=== PATIENT | female | born 1965 | race Caucasian/White ===

== ENCOUNTER 2017-10-26 16:32 | Emergency (ER) | payer BC, SELFPAY ==
--- OUTSIDE RECORDS SUMMARY | 2017-10-26 16:35 | XMS REPORT ---
:1965 Author Organization [facility] Address [address] [place] [address] Dr. Byrd [address] [place] [address] Care Team Providers Name Role Phone JAMES FAN Unavailable Unavailable Problems This patient has no known problems. Allergies, Adverse Reactions, Alerts This patient has no known allergies or adverse reactions. Medications This patient has no known medications. Results Test Description Test Time Test Comments Text Results Atomic Results Result Comments FLOW CYTOMETRY REQUISITION 2016-10-21 10:26:00 Test Item Value Reference Range Comments FLOW CYTOMETRY RESULT POINTER (BEAKER) (test erjh=7861) See Separate Report FLOW CYTOMETRY AP CASE # (BEAKER) (test dlea=8408) [id number] BLOOD [id number] 06:00:00 Test Item Value Reference Range Comments CULTURE (BEAKER) (test zddy=5401) No growth in 5 days BLOOD [id number] 06:00:00 Test Item Value Reference Range Comments CULTURE (BEAKER) (test ldgl=4791) No growth in 5 days FLOW [id number] 08:25:00Flow Cytometry Report Case: [id number] Authorizing Provider: Nena Shea MD Collected: 10/13/2016 0500 Ordering Location: [address] Received: 10/13/2016 0844 Service Pathologist: Shari Zuniga MD Specimen: Other RESULTS: ADULT NORMALS ABSOLUTE LYMPHS: 1355.03/cmm 911-4017/cmmT LYMPHOCYTE ENUMERATION: CD3 (Total T cell) 81.41% 1103.09/cmm 619--3000/cmmCD4 (T [place] cells) 57.79% 783.06/cmm 437-1930/cmmCD8 (T Suppressor cells) 23.58% 319.51/ cmm 161-1160/cmmCD4:CD8 (Th:Ts Ratio) 2.45 1.00-2.50CD16+56 (Natural Killer cells) 2.09% 28.28/cmm 84-722/ cmmB LYMPHOCYTE ENUMERATION:CD19 (Total B cells) 16.43% 222.61 /cmm 74-706/cmmThese reference ranges are specific for the T cell subset immune profile methodology, effective 06/23/2014. No cellular immune alteration detected. Absolute lymph count, absolute CD4 count and CD4:CD8 ratio within normal limits.[id number] Zoster meningitisPeripheral bloodCD3, CD4, CD8, CD16+56, YL05Gelub testswere developed and their performance characteristics determined by [facility]. They have not been cleared or approved by the U.S. Food and Drug Administration. The FDA has determined that such clearance or approval is not necessary. It should not be regarded as investigational or for research. This laboratory is certified under the Clinical Laboratory Improvement Amendments of 1988 ("CLIA") as qualified to perform high-complexity clinical testing.BASIC METABOLIC [id number] 04:15: 00 Test Item Value Reference Range Comments SODIUM (BEAKER) (test 137 meq/L 136-145 ksrz=102) POTASSIUM (BEAKER) (test 4.2 meq/L 3.5-5.1 frdj=565) CHLORIDE (BEAKER) (test 100 meq/L 98-107 ddox=471) CO2 (BEAKER) (test 29 meq/L 22-29 klim=453) BLOOD UREA NITROGEN 5 mg/dL 7-21 (BEAKER) (test dzro=209) CREATININE (BEAKER) (test 0.72 mg/dL 0.57-1.25 vzho=672) GLUCOSE RANDOM (BEAKER) 93 mg/dL 70-105 (test qtvq=381) CALCIUM (BEAKER) (test 9.8 mg/dL 8.4-10.2 pfun=655) EGFR (BEAKER) (test mL/min/1.73 sq m INSUFFICIENT CLINICAL DATA vocx=9865) TO CALCULATE ESTIMATED GFR. [id number] 03:57:00 Test Item Value Reference Range Comments PHOSPHORUS (BEAKER) (test xero=887) 4.8 mg/dL 2.3-4.7 [id number] 03:57:00 Test Item Value Reference Range Comments MAGNESIUM (BEAKER) (test xsqf=535) 2.0 mg/dL 1.6-2.6 PROTHROMBIN TIME/[id number] 03:55:00 Test Item Value Reference Range Comments PROTIME (BEAKER) (test aeso=995) 14.4 seconds 11.7-14.7 INR (BEAKER) (test xvnv=208) 1.1 <=5.9 RECOMMENDED COUMADIN/WARFARIN INR THERAPY RANGESSTANDARD DOSE: 2.0 - 3.0 Includes: PROPHYLAXIS forvenous thrombosis, systemic embolization; TREATMENT for venous thrombosis and/or pulmonary embolus.HIGH RISK: Target INR is 2.5-3.5 for patients with mechanical heart valves.IMMUNOGLOBULIN G (IGG)2016-10-13 07:43 :00 Test Item Value Reference Range Comments IMMUNOGLOBULIN G (IGG) (BEAKER) (test ttoc=252) 1099 mg/dL 540-1822 IMMUNOGLOBULIN M (IGM)2016-10-13 07:43:00 Test Item Value Reference Range Comments IMMUNOGLOBULIN M (IGM) (BEAKER) (test bkwd=169) 145 mg/dL 22-293 IMMUNOGLOBULIN A (IGA)2016-10-13 07:43:00 Test Item Value Reference Range Comments IMMUNOGLOBULIN A (IGA) (BEAKER) (test cnok=276) 516 mg/dL 63-484 BASIC METABOLIC [id number] 05:59:00 Test Item Value Reference Range Comments SODIUM (BEAKER) (test 136 meq/L 136-145 inzy=846) POTASSIUM (BEAKER) (test 4.2 meq/L 3.5-5.1 lqxa=209) CHLORIDE (BEAKER) (test 101 meq/L 98-107 qqob=527) CO2 (BEAKER) (test 25 meq/L 22-29 ikhx=648) BLOOD UREA NITROGEN 5 mg/dL 7-21 (BEAKER) (test vnai=032) CREATININE (BEAKER) (test 0.80 mg/dL 0.57-1.25 pvjv=721) GLUCOSE RANDOM (BEAKER) 95 mg/dL 70-105 (test vrbp=094) CALCIUM (BEAKER) (test 9.7 mg/dL 8.4-10.2 ioxk=947) EGFR (BEAKER) (test mL/min/1.73 sq m INSUFFICIENT CLINICAL DATA obkt=9135) TO CALCULATE ESTIMATED GFR. [id number] 05:48:00 Test Item Value Reference Range Comments PHOSPHORUS (BEAKER) (test ihpm=843) 4.2 mg/dL 2.3-4.7 [id number] 05:48:00 Test Item Value Reference Range Comments MAGNESIUM (BEAKER) (test wqhr=537) 2.1 mg/dL 1.6-2.6 PROTHROMBIN TIME/[id number] 05:26:00 Test Item Value Reference Range Comments PROTIME (BEAKER) (test bnep=876) 13.3 seconds 11.7-14.7 INR (BEAKER) (test tzun=047) 1.0 <=5.9 RECOMMENDED COUMADIN/WARFARIN INR THERAPY RANGESSTANDARD DOSE: 2.0 - 3.0 Includes: PROPHYLAXIS forvenous thrombosis, systemic embolization; TREATMENT for venous thrombosis and/or pulmonary embolus.HIGH RISK: Target INR is 2.5-3.5 for patients with mechanical heart valves.PROTHROMBIN TIME/[id number] 03:27: 00 Test Item Value Reference Range Comments PROTIME (BEAKER) (test hqvp=835) 13.7 seconds 11.7-14.7 INR (BEAKER) (test kyov=647) 1.1 <=5.9 RECOMMENDED COUMADIN/WARFARIN INR THERAPY RANGESSTANDARD DOSE: 2.0 - 3.0 Includes: PROPHYLAXIS forvenous thrombosis, systemic embolization; TREATMENT for venous thrombosis and/or pulmonary embolus.HIGH RISK: Target INR is 2.5-3.5 for patients with mechanical heart valves.BASIC METABOLIC [id number] 03:17: 00 Test Item Value Reference Range Comments SODIUM (BEAKER) (test 138 meq/L 136-145 psnk=509) POTASSIUM (BEAKER) (test 3.4 meq/L 3.5-5.1 vmmv=174) CHLORIDE (BEAKER) (test 101 meq/L 98-107 arfg=300) CO2 (BEAKER) (test 25 meq/L 22-29 roab=375) BLOOD UREA NITROGEN 4 mg/dL 7-21 (BEAKER) (test saeb=042) CREATININE (BEAKER) (test 0.79 mg/dL 0.57-1.25 qyhk=248) GLUCOSE RANDOM (BEAKER) 173 mg/dL 70-105 (test knmf=073) CALCIUM (BEAKER) (test 9.8 mg/dL 8.4-10.2 jcqz=203) EGFR (BEAKER) (test mL/min/1.73 sq m INSUFFICIENT CLINICAL DATA rjsm=9652) TO CALCULATE ESTIMATED GFR. [id number] 03:15:00 Test Item Value Reference Range Comments PHOSPHORUS (BEAKER) (test rcwu=938) 3.6 mg/dL 2.3-4.7 [id number] 03:15:00 Test Item Value Reference Range Comments MAGNESIUM (BEAKER) (test uvvp=316) 2.1 mg/dL 1.6-2.6 CBC W/PLT COUNT & AUTO [id number] 03:00:00 Test Item Value Reference Range Comments WHITE BLOOD CELL COUNT (BEAKER) (test zqwq=843) 4.3 K/ L 3.5-10.5 RED BLOOD CELL COUNT (BEAKER) (test jipo=153) 3.96 M/ L 3.93-5.22 HEMOGLOBIN (BEAKER) (test gqfq=969) 11.2 GM/DL 11.2-15.7 HEMATOCRIT (BEAKER) (test adbi=276) 34.7 % 34.1-44.9 MEAN CORPUSCULAR VOLUME (BEAKER) (test tbxj=640) 87.6 fL 79.4-94.8 MEAN CORPUSCULAR HEMOGLOBIN (BEAKER) (test 28.3 pg 25.6-32.2 kcsv=229) MEAN CORPUSCULAR HEMOGLOBIN CONC (BEAKER) (test 32.3 GM/DL 32.2-35.5 nczt=702) RED CELL DISTRIBUTION WIDTH (BEAKER) (test 14.1 % 11.7-14.4 zyvx=658) PLATELET COUNT (BEAKER) (test qlhc=075) 208 K/CU MM 150-450 MEAN PLATELET VOLUME (BEAKER) (test dkvn=385) 9.9 fL 9.4-12.3 NUCLEATED RED BLOOD CELLS (BEAKER) (test 0 /100 WBC 0-0 wvxm=188) NEUTROPHILS RELATIVE PERCENT (BEAKER) (test 67 % vgqy=760) LYMPHOCYTES RELATIVE PERCENT (BEAKER) (test 22 % xmqk=554) MONOCYTES RELATIVE PERCENT (BEAKER) (test 6 % ydeb=580) EOSINOPHILS RELATIVE PERCENT (BEAKER) (test 4 % xxjx=825) BASOPHILS RELATIVE PERCENT (BEAKER) (test 1 % zcnq=579) NEUTROPHILS ABSOLUTE COUNT (BEAKER) (test 2.86 K/ L 1.56-6.13 cxdm=167) LYMPHOCYTES ABSOLUTE COUNT (BEAKER) (test 0.96 K/ L 1.18-3.74 wabg=588) MONOCYTES ABSOLUTE COUNT (BEAKER) (test 0.26 K/ L 0.24-0.36 dgjj=720) EOSINOPHILS ABSOLUTE COUNT (BEAKER) (test 0.17 K/ L 0.04-0.36 lqnv=864) BASOPHILS ABSOLUTE COUNT (BEAKER) (test 0.02 K/ L 0.01-0.08 ekqz=639) IMMATURE GRANULOCYTES-RELATIVE PERCENT (BEAKER) 1 % 0-1 (test wqqq=4032)
--- OUTSIDE RECORDS SUMMARY | 2017-10-26 16:35 | XMS REPORT | Clinical Summary ---
:1965 Author Organization [facility] Address [address] [place] [address] Phone Care Team Providers Name Role Phone Unavailable Primary Care Provider Unavailable Allergies Active Allergy Reactions Severity Noted Date Comments Penicillins Dermatitis Medium 10/11/2016 Hydrocodone-Acetaminophen Itching 10/12/2016 Current Medications Prescription Sig. Disp. Refills Start Date End Date Status gabapentin Take 5 capsules 450 capsule 11 10/15/2016 10/15/2017 (NEURONTIN) 100 MG (500 mg total) capsule by mouth 3 (three) times daily. lidocaine-prilocain Apply topically 30 g 0 10/15/2016 10/15/2017 e (EMLA) 2.5-2.5 % as needed. cream metoprolol Take 0.5 tablets 30 tablet 11 10/15/2016 10/15/2017 (LOPRESSOR) 25 MG (12.5 mg total) tablet by mouth 2 (two) times daily. valACYclovir Take 1 tablet 33 tablet 0 10/15/2016 10/26/2016 (VALTREX) 1000 MG (1,000 mg total) tablet by mouth every 8 (eight) hours for 11 days. traMADol-acetaminop Take 1 tablet by 30 tablet 0 10/15/2016 10/25/2016 hen (ULTRACET) mouth every 6 37.5-325 mg per (six) hours as tablet needed for Pain for up to 10 days. Max Daily Amount: 4 tablets oxyCODONE Take 1 tablet (5 30 tablet 0 10/15/2016 10/25/2016 (ROXICODONE) 5 MG mg total) by immediate release mouth every 4 tablet (four) hours as needed for up to 10 days. 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
[2017-10-26] MEDS ORDERED: cloNIDine HCl 0.1 MG TAB ONE (17:03)
--- NOTE | 2017-10-26 17:04 | RAD REPORT ---
EXAM DESCRIPTION: Santos Single View10/26/2017 4:58 pm CLINICAL HISTORY: CHEST PAIN COMPARISON: none FINDINGS: The lungs appear clear of acute infiltrate. The heart is normal size IMPRESSION: No acute abnormalities displayed
[2017-10-26 17:08] LABS: Absolute Lymphocytes (CBC) 1.1 K/uL (0.7-4.9); Absolute Monocytes 0.4 K/uL (0.1-1.3); Absolute Neutrophil 4.3 K/uL (1.8-8.0); Basophils % 0.5 % (0-1.3); Eosinophils % 1.5 % (0-4.4); Hematocrit 37.4 % (36.0-45.0); Lymphocytes % 18.6 % (15.3-44.8); MCV 95.6 fL (80-100); MPV 7.5 fL (7.6-11.3); Monocytes % 7.1 % (3.3-12.3); RBC Red Blood Cell Count 3.92 M/uL (3.86-4.86)
--- NOTE | 2017-10-26 17:19 | RAD REPORT ---
EXAM DESCRIPTION: CT - Head Brain Wo Cont - 10/26/2017 5:08 pm CLINICAL HISTORY: hypertensive;Headache<Reason For Exam>hypertensive;Headache Alteration of consciousness/memory loss COMPARISON: No comparisons<Comparisons> June 2016 TECHNIQUE: Computed axial tomography of the head was obtained. IV contrast was not requested. All CT scans are performed using dose optimization technique as appropriate and may include automated exposure control or mA/KV adjustment according to patient size. FINDINGS: An intracranial bleed is not seen . The ventricles are normal in caliber. No extra-axial fluid collection is noted. Fluid within the sinuses/ mastoids is not seen. IMPRESSION: No acute intracranial abnormality is seen. If patient's symptoms persist MRI of the bra in would be recommended.
[2017-10-26 17:27] LABS: BUN Blood Urea Nitrogen 5 mg/dL (7-18); Bicarbonate 26 mmol/L (21-32); CKMB Creatine Kinase MB < 1.0 ng/mL (0.3-3.6); Creatine Phosphokinase 45 U/L (26-192); Glucose Level 95 mg/dL (74-106); Potassium 3.4 mmol/L (3.5-5.1); Sodium Level 135 mmol/L (136-145)
--- NOTE | 2017-10-26 17:40 | ER ---
Nurse's Notes [facility] Name: Tiana Madsen Age: 51 yrs Sex: Female : 1965 Arrival Date: 10/26/2017 Time: 16:33 Bed 17 Private MD: Diagnosis: Hypertension;Headache;Chest pain, unspecified Presentation: 10/26 16:34 Presenting complaint: Patient states: high blood pressure, headache and chest tightness ss that began this morning. Transition of care: patient was not received from another setting of care. Onset of symptoms was October 26, 2017. Risk Assessment: Do you want to hurt yourself or someone else? Patient reports no desire to harm self or others. Initial Sepsis Screen: Does the patient meet any 2 criteria? No. Patient's initial sepsis screen is negative. Does the patient have a suspected source of infection? No. Patient's initial sepsis screen is negative. Care prior to arrival: Medication(s) given: ASA, 81 mg, x 4, Nitroglycerin, 0.4 mg SL x 1, zofran 4 mg, IV initiated. 20 GA, in the right antecubital area, Med neb given. 16:34 Method Of Arrival: EMS: [facility] ss 16:34 Acuity: PRAMOD 3 ss Triage Assessment: 16:45 Headache History: Denies prior headaches. General: Appears uncomfortable, Behavior is rb1 calm, cooperative. Pain: Pain currently is 10 out of 10 on a pain scale. Also complains of no other associated symptoms. Historical: - Allergies: 16:40 Codeine; ss - Home Meds: 16:45 Unable to obtain [Active]; rb1 - PMHx: 16:45 Hypertension; rb1 - PSHx: 16:45 None; rb1 - Immunization history:: Adult Immunizations up to date. - Family history:: not pertinent. - Social history:: Smoking status: Patient/guardian denies using tobacco. - Ebola Screening: : Patient negative for fever greater than or equal to 101.5 degrees Fahrenheit, and additional compatible Ebola Virus Disease symptoms. - Hospitalizations: : No recent hospitalization is reported. Screenin:01 Abuse screen: Denies threats or abuse. Denies injuries from another. Nutritional ss screening: No deficits noted. Tuberculosis screening: Never had TB. Fall Risk None identified. Assessment: 16:45 General: Appears uncomfortable, Behavior is calm, cooperative, Denies fever. Pain: rb1 Complains of pain in midsternal and head. Neuro: Level of Consciousness is awake, alert, obeys commands, Oriented to person, place, time, situation. Cardiovascular: Capillary refill < 3 seconds is brisk in bilateral fingers. Respiratory: Airway is patent Respiratory effort is even, unlabored, Respiratory pattern is regular, symmetrical. GI: No signs and/or symptoms were reported involving the gastrointestinal system. : No signs and/or symptoms were reported regarding the genitourinary system. Derm: Skin is pink, warm \T\ dry. Musculoskeletal: Range of motion: intact in all extremities. 17:01 Reassessment: Pt to CT via Wheelchair with Teddy, radiology director. ss 17:45 Reassessment: Patient appears in no apparent distress at this time. Patient and/or rb1 family updated on plan of care and expected duration. Pain level reassessed. Patient is alert, oriented x 3, equal unlabored respirations, skin warm/dry/pink. 18:40 Reassessment: Patient appears in no apparent distress at this time. No changes from rb1 previously documented assessment. Vital Signs: 16:40 BP 172 / 103; Pulse 96; Resp 16; Pulse Ox 97% on R/A; ss 16:41 Temp 98.7(O); Weight 57.61 kg; Height 5 ft. 1 in. (154.94 cm); Pain 6/10; ss 17:00 BP 137 / 96; Pulse 92; Resp 16; Pulse Ox 100% on R/A; ss 18:00 BP 151 / 98; Pulse 82; Resp 17; Pulse Ox 99% ; rb1 16:41 Body Mass Index 24.00 (57.61 kg, 154.94 cm) ss [place] Coma Score: 17:37 Eye Response: spontaneous(4). Verbal Response: oriented(5). Motor Response: obeys rn commands(6). Total: 15. ED Course: 16:33 Patient arrived in ED. ss 16:38 Eloy Cruz MD is Attending Physician. rn 16:39 Triage completed. ss 16:40 Arm band placed on right wrist. ss 16:41 EKG done, by echo tech. reviewed by Eloy Cruz MD. sm3 16:50 Patient has correct armband on for positive identification. Bed in low position. Call ss light in reach. Side rails up X 1. 16:50 Maintain EMS IV. Dressing intact. Good blood return noted. Site clean \T\ dry. Gauge \T\ rb 1 site: 20g L wrist. 16:56 Linda Cantu, RN is Primary Nurse. 16:59 XRAY Chest (1 view) In Process Unspecified. EDMS 17:[address] via wheelchair. nj 17:04 CT completed. Patient tolerated procedure well. Patient moved back from CT. nj 17:08 CT Head Brain wo Cont In Process Unspecified. EDMS 17:40 Tao Jose MD is Referral Physician. rn 18:44 No provider procedures requiring assistance completed. IV discontinued, intact, rb1 bleeding controlled, No redness/swelling at site. Pressure dressing applied. Administered Medications: 18:23 Not Given (BP 137/96): cloNIDine 0.2 mg PO once rb1 Outcome: 17:40 Discharge ordered by MD. rn 18:44 Patient left the ED. rb1 18:44 Discharged to home ambulatory, with family. rb1 18:44 Condition: stable 18:44 Discharge instructions given to patient, Instructed on discharge instructions, follow up and referral plans. Demonstrated understanding of instructions, follow-up care, Prescriptions given X none Signatures: Dispatcher [employer] EDNV Eloy Cruz MD MD rn Smirch, Shelby, RN RN Teena Baptiste, RN RN rb1 Jonny Wells Shakira 3 Corrections: (The following items were deleted from the chart) 19:57 16:50 Inserted saline lock: 20 gauge in left wrist, using aseptic technique. ,using rb1 aseptic technique. Inserted by KASI Mckeon Blood collected. rb1 20:03 19:14 Patient left the ED. rb1 rb1
--- NOTE | 2017-10-26 17:40 | EDPHYS ---
Physician Documentation [facility] Name: Tiana Madsen Age: 51 yrs Sex: Female : 1965 Arrival Date: 10/26/2017 Time: 16:33 Bed 17 Private MD: ED Physician Eloy Cruz HPI: 10/26 16:44 This 51 yrs old Female presents to ER via EMS with complaints of Headache, rn Chest Tightness, High Blood Pressure. 16:44 The patient describes the headache as throbbing. Onset: The symptoms/episode rn began/occurred at 12:00. Severity of symptoms: At its worst the pain was moderate, in the emergency department the pain has improved. Headache History: The patient has had previous headaches and this one is similar to previous episodes. The patient has experienced similar episodes in the past. Reports around noon began having headache, checked BP , was high, reports BP always high but not this high, about 45 later began having chest pressure, substernal, no radiation, no sob, no cough, no abd pain. + similar headaches in past with blood pressure problems, but not this bad. No trauma, no syncope, no neck pain or stiff neck. . Historical: - Allergies: 16:40 Codeine; ss - Home Meds: 16:45 Unable to obtain [Active]; rb1 - PMHx: 16:45 Hypertension; rb1 - PSHx: 16:45 None; rb1 - Immunization history:: Adult Immunizations up to date. - Family history:: not pertinent. - Social history:: Smoking status: Patient/guardian denies using tobacco. - Ebola Screening: : Patient negative for fever greater than or equal to 101.5 degrees Fahrenheit, and additional compatible Ebola Virus Disease symptoms. - Hospitalizations: : No recent hospitalization is reported. ROS: 16:44 Constitutional: Negative for fever, chills, and weight loss, Eyes: Negative for injury, rn pain, redness, and discharge, Neck: Negative for injury, pain, and swelling, Cardiovascular: Negative for palpitations, and edema, Respiratory: Negative for shortness of breath, cough, wheezing, and pleuritic chest pain, Abdomen/GI: Negative for abdominal pain, vomiting, diarrhea, and constipation, MS/Extremity: Negative for injury and deformity, Skin: Negative for injury, rash, and discoloration, Neuro: Negative for weakness, and seizure. Exam: 16:44 Constitutional: This is a well developed, well nourished patient who is awake, alert, rn and in no acute distress. Head/Face: Normocephalic, atraumatic. Eyes: Pupils equal round and reactive to light, extra-ocular motions intact. Lids and lashes normal. Conjunctiva and sclera are non-icteric and not injected. Cornea within normal limits. Periorbital areas with no swelling, redness, or edema. Neck: Trachea midline, no thyromegaly or masses palpated, and no cervical lymphadenopathy. Supple, full range of motion without nuchal rigidity, or vertebral point tenderness. No Meningismus. Cardiovascular: Regular rate and rhythm with a normal S1 and S2. No gallops, murmurs, or rubs. Normal PMI, no JVD. No pulse deficits. Respiratory: Lungs have equal breath sounds bilaterally, clear to auscultation and percussion. No rales, rhonchi or wheezes noted. No increased work of breathing, no retractions or nasal flaring. Abdomen/GI: Soft, non-tender, with normal bowel sounds. No distension or tympany. No guarding or rebound. No evidence of tenderness throughout. MS/ Extremity: Pulses equal, no cyanosis. Neurovascular intact. Full, normal range of motion. Equal circumference. Neuro: Awake and alert, GCS 15, oriented to person, place, time, and situation. Cranial nerves II-XII grossly intact. Motor strength 5/5 in all extremities. Sensory grossly intact. Cerebellar exam normal. Vital Signs: 16:40 BP 172 / 103; Pulse 96; Resp 16; Pulse Ox 97% on R/A; ss 16:41 Temp 98.7(O); Weight 57.61 kg; Height 5 ft. 1 in. (154.94 cm); Pain 6/10; ss 17:00 BP 137 / 96; Pulse 92; Resp 16; Pulse Ox 100% on R/A; ss 18:00 BP 151 / 98; Pulse 82; Resp 17; Pulse Ox 99% ; rb1 16:41 Body Mass Index 24.00 (57.61 kg, 154.94 cm) ss Clifford Coma Score: 17:37 Eye Response: spontaneous(4). Verbal Response: oriented(5). Motor Response: obeys rn commands(6). Total: 15. MDM: 16:38 Patient medically screened. rn 17:37 Differential diagnosis: hypertensive headache, migraine, tension headache, vasomotor rn headache, hypertensive emergency, malignant hypertension. Data reviewed: vital signs, nurses notes, lab test result(s), EKG, radiologic studies, CT scan, plain films, and as a result, I will discharge patient. Counseling: I had a detailed discussion with the patient and/or guardian regarding: the historical points, exam findings, and any diagnostic results supporting the discharge/admit diagnosis, the presence of at least one elevated blood pressure reading (>120/80) during this emergency department visit, lab results, radiology results, the need for outpatient follow up, to return to the emergency department if symptoms worsen or persist or if there are any questions or concerns that arise at home. Response to treatment: the patient's symptoms have markedly improved after treatment. Special discussion: I discussed with the patient/guardian in detail that at this point there is no indication for admission to the hospital. It is understood, however, that if the symptoms persist or worsen the patient needs to return immediately for re-evaluation. Based on the history and exam findings, there is no indication for further emergent testing or inpatient evaluation. I discussed with the patient/guardian the need to see the bridge attacher for further evaluation of the symptoms. I discussed with the patient/guardian the need to see the primary care provider for further evaluation of the symptoms. ED course: Pt improved without therapy, clonidine had been ordered but BP improved to 137/96 on its own, still having mild chest tightness, trop normal, ecg without ischemia. Will dc home with pcp and cardiology f/u, return precautions given and understood. . 17:41 ED course: Pt with constant chest pain for > 4 hours, trop normal, ecg without rn ischemia, headache and CP improved on their own when blood pressure lowered. Reports hx of intermittent, weekly headaches, and denies recent episodes of chest pain/cough/sob. Understands cardiac disease not completely ruled out without stress/cath, agrees to f/u with cardiology or return if symptoms worsen before evaluation.. 10/26 16:39 Order name: Basic Metabolic Panel; Complete Time: 17:28 rn 10/26 16:39 Order name: CBC with Diff; Complete Time: 17:22 rn 10/26 16:39 Order name: Ckmb; Complete Time: 17:28 rn 10/26 16:39 Order name: CPK; Complete Time: 17: rn 10/26 16:39 Order name: Protime (+inr); Complete Time: 17: rn 10/26 16:39 Order name: Ptt, Activated; Complete Time: 17: rn 10/26 16:39 Order name: CT Head Brain wo Cont; Complete Time: 17: rn 10/26 16:39 Order name: Troponin (emerg Dept Use Only); Complete Time: 17: rn 10/26 16:39 Order name: EKG; Complete Time: 16: rn 10/26 16:39 Order name: Cardiac monitoring; Complete Time: 17: rn 10/26 16:39 Order name: EKG - Nurse/Tech; Complete Time: 17: rn 10/26 16:39 Order name: IV Saline Lock; Complete Time: 17: rn 10/26 16:39 Order name: XRAY Chest (1 view); Complete Time: 17: rn 10/26 16:39 Order name: Labs collected and sent; Complete Time: 19: rn 10/26 16:39 Order name: NPO; Complete Time: 19: rn 10/26 16:39 Order name: O2 Per Protocol; Complete Time: 19: rn 10/26 16:39 Order name: O2 Sat Monitoring; Complete Time: 19:02 rn Administered Medications: 18:23 Not Given (BP 137/96): cloNIDine 0.2 mg PO once rb1 Disposition: 10/26/17 17:40 Discharged to Home. Impression: Hypertension, Headache, Chest pain, unspecified. - Condition is Stable. - Discharge Instructions: Nonspecific Chest Pain, General Headache Without Cause, Hypertension. - Medication Reconciliation Form, Thank You Letter, Antibiotic Education, Prescription Opioid Use form. - Follow up: Tao Jose MD; When: 2 - 3 days; Reason: Recheck today's complaints, Re-evaluation by your physician. - Problem is new. - Symptoms have improved. Signatures: Dispatcher [employer] EDMS Eloy Cruz MD MD rn Linda Cantu RN RN Teena Goins, RN RN rb1 Corrections: (The following items were deleted from the chart) 19:14 17:40 10/26/2017 17:40 Discharged to Home. Impression: Hypertension; Headache; Chest rb1 pain, unspecified. Condition is Stable. Forms are Medication Reconciliation Form, Thank You Letter, Antibiotic Education, Prescription Opioid Use. Follow up: Tao Jose; When: 2 - 3 days; Reason: Recheck today's complaints, Re-evaluation by your physician. Problem is new. Symptoms have improved. rn
--- NOTE | 2017-10-28 06:12 | EKG ---
Test Date: 2017-10-26 Test Time: 16:30:51 Unarmed Security Guard: LATRELL MEASUREMENT RESULTS: Intervals: Rate: 87 TN: 110 QRSD: 80 QT: 356 QTc: 428 [place]: P: 39 TN: 110 QRS: 32 T: 51 INTERPRETIVE STATEMENTS: Sinus rhythm with short TN Otherwise normal ECG No previous ECG available for comparison Electronically Signed On 10-28-17 06:08:19 CDT by Tao Jose
== END 2017-10-26 19:14 | disposition home or self-care (01) ==
LOC: ER 16:32
DX: I10 Essential (primary) hypertension (principal); R07.9 Chest pain, unspecified; Z88.5 Allergy status to narcotic agent
CPT/HCPCS: 36415; 70450; 71045; 80048; 82550; 82553; 84484; 85025; 85610; 85730; 93005; 99284

== ENCOUNTER 2021-03-17 08:52 | Emergency (ER) | payer SELFPAY ==
--- OUTSIDE RECORDS SUMMARY | 2021-03-17 08:55 | XMS REPORT | Continuity of Care Document ---
:1965 Author Organization [facility] t Address [address] [place] [address] Care Team Providers Name Role Phone Singer OZUNAOusmane Attending Clinician JAMES FAN Attending Clinician Unavailable JAMES FAN Admitting Clinician Unavailable Problems Condition Condition Condition Status Onset Resolution Last Treating Co mments Source Name Details Category Date Date Treatment Clinician Date Decreased Decreased Disease Active Uni vers libido libido 06 ity of 00:00: [place] 00 [facility] Dyspareuni Dyspareuni Disease Active U nivers a, female a, female 7 ity of 00:00: [place] 00 [facility] Vaginal Vaginal Disease Active Univers atrophy atrophy 706 ity of 00:00: [place] 00 [facility] Allergies, Adverse Reactions, Alerts Allergy Allergy Status Severity Reaction(s) Onset Inactive Treating Comm ents Source Name Type Date Date Clinician Codeine Drug Active Itching Univers Allergy 6-14 ity of 00:00: [place] 00 [facility] CODEINE DRUG Active High ITCHING Univers INGREDI 6-14 ity of 00:00: [place] 00 [facility] Hydrocod Propensi Active Itching Unive rs one-Acet ty to 8-16 ity of aminophe adverse 00:00: [place] n reaction 00 Medical s Branch HYDROCOD DRUG Active ITCHING 2017-0 Univers ONE-ACET 8-16 ity of AMINOPHE 00:00: [place] N 00 Medical Branch PENICILL Drug Active Med Rash 0 Univers INS Class 8-15 ity of 00:00: [place] 00 Medical [facility] Penicill Propensi Active Rash 2016-0 Univer s ins ty to 8-15 ity of adverse 00:00: [place] reaction 00 Medical s Branch Social History Social Habit Start Date Stop Date Quantity Comments Source Sex Assigned At Universit y of [facility] Exposure to Not sure University of SARS-CoV-2 [facility] (event) Branch Alcohol intake 2019-01-12 2019-01-12 University of 00:00:00 00:00:00 [facility] Alcohol Comment 2017-08-10 2017-08-10 1 case beer week Uni versity of 00:00:00 00:00:00 [facility] Smoking Status Start Date Stop Date Source Never smoker [facility] Medications Ordered Filled Start Stop Current Ordering Indication Dosage Frequency Signature Comments Components Source Medication Medication Date Date Medication? Clinician (SIG) Name Name methylPREDN Yes [id number] Take by Univers ISolone 4-30 mouth ity of (MEDROL, 00:00: SEE-INSTRU John as ANTIONE,) 4 mg 00 CTIONS. Medica l tablets follow Branch package directions clindamycin 2020- No [id number] 300mg Take 2 Univers 150 mg 4-30 05-08 capsules ity of capsule 00:00: 04:59 by mouth 4 John as 00 :00 (four) Medical times Branch daily for 7 days. amitriptyli 2018-02 Yes [id number] 10mg Take 1 Univers ne 10 mg 1-16 tablet by ity of tablet 00:00: mouth at [place] 00 bedtime. Medical Branch metoprolol Yes 25mg Take 1 Unive rs succinate 5-02 tablet by ity o f XL 25 mg 24 00:00: mouth [place] hr tablet 00 daily. Medical Branch CARBAMAZEPI Yes TAKE 1 Univ ers NE 100 mg 5-02 TABLET BY ity o f 12 hr 00:00: MOUTH [place] tablet 00 TWICE A Medical DAY Branch fluticasone Yes [id number] 1{spray Use 1 Univers 50 4-10 } [place] in ity of mcg/actuati 00:00: each [place] on nasal 00 nostril 2 Medica l spray (two) Branch times daily. benzonatate 2018- Yes [id number] 100mg Take 1 Univers (TESSALON 4-10 capsule by ity of PERLES) 100 00:00: mouth 3 John as mg capsule 00 (three) Medica l times Branch daily. naproxen 2018- Yes [id number] 500mg Take 1 Un jose 500 mg 4-10 tablet by ity of tablet 00:00: mouth 2 [place] 00 (two) Medical times Branch daily with meals. promethazin Yes [id number] 5mL Take 5 mL Univers e-dextromet 3-25 by mouth 4 it y of horphan 00:00: (four) [place] 6.25-15 00 times Medical mg/5 mL daily as Branch syrup needed for Cough. albuterol Yes [id number] 2{puff} Inhale 2 Univers 90 3-25 Puffs ity of mcg/actuati 00:00: every 6 John as on inhaler 00 (six) Medical hours as Branch needed for Chest tightness. olmesartan Yes [id number] 20mg Take 1 U nivers (BENICAR) 2-05 tablet by ity o f 20 mg 00:00: mouth [place] tablet 00 daily. Medical Branch Vital Signs Vital Name Observation Time Observation Value Comments Source Systolic blood 2019-06-27 12:00:00 176 mm[Hg] Univer sity of pressure [facility] Diastolic blood 2019-06-27 12:00:00 86 mm[Hg] Unive rsity [facility] Heart rate 2019-06-27 12:00:00 95 /min [facility] Body temperature 2019-06-27 12:00:00 37.06 Krystyna [facility] Respiratory rate 2019-06-27 12:00:00 18 /min [facility] Body height 2019-06-27 12:00:00 154.9 cm [facility] Body weight 2019-06-27 12:00:00 47.628 kg [facility] BMI 2019-06-27 12:00:00 19.84 kg/m2 [facility] Oxygen saturation in 2019-06-27 12:00:00 100 /min [facility] Arterial blood by [facility] Pulse oximetry Branch Procedures This patient has no known procedures. Encounters Start End Encounter Admission Attending Care Care Encounter Source Date/Time Date/Time Type Type Clinicians Facility Department ID 2020-12-[address] [facility] [id number] Univers 19:27:27 ity of [facility] 2019-06-27 2019-06-27 Emergency Singer [facility] [id number] Univers 07:02:56 08:01:00 Ousmane Cardenas [id number] i ty leah Garcia [id number] [facility] [id number] [facility] 084 Branch Results Test Description Test Time Test Comments Results Result Comments Source FLOW CYTOMETRY REQUISITION 2016-10-21 10:26:00 Test Item Value Reference Range Interpretation Comme nts FLOW CYTOMETRY RESULT POINTER (BEMICHELLE) (test code = 2758) See Separ ate Report FLOW CYTOMETRY AP CASE # (BEMICHELLE) (test code = 2759) [id number] BLOOD [id number] 06:00:00 Test Item Value Reference Range Interpretation Comments CULTURE (BEAKER) (test No growth in 5 days code = 1095) BLOOD [id number] 06:00:00 Test Item Value Reference Range Interpretation Comments CULTURE (BEAKER) (test No growth in 5 days code = 1095) FLOW [id number] 08:25:00Flow Cytometry Report Case: [id number] Authorizing Provider: Nena Shea MD Collected: 10/13/2016 0500 Ordering Location: [address] Received: 10/13/2016 0844 Service Pathologist: Shari Zuniga MD Specimen: Other RESULTS: ADULT NORMALS ABSOLUTE LYMPHS: 1355.03/cmm 911- 4017/cmmT LYMPHOCYTE ENUMERATION: CD3 (Total T cell) 81.41% 1103.09/cmm 619--3000/cmmCD4 (T [place] cells) 57.79% 783.06/cmm 437-1930/cmmCD8 (T Suppressor cells) 23.58% 319.51/cmm 161-1160/cmmCD4:CD8 (Th:Ts Ratio) 2.45 1.00-2.50CD16+56 (Natural Killer cells) 2.09% 28.28/cmm 84-722/cmmB LYMPHOCYTE ENUMERATION:CD19 (Total B cells) 16.43% 222.61/cmm 74-706/cmmThese reference ranges are specific for the T cell subset immune profile methodology, effective 06/23/2014. No cellular immune alteration detected. Absolute lymph count, absolute CD4 count and CD4:CD8 ratio within n ormal limits.[id number] Zoster meningitisPeripheral bloodCD3, CD4, CD8, CD16+56, TK23Reknu testswere developed and their performance characteristics determined by [facility]. They have not been cleared or approved by the U.S. Food and Drug Administration. The FDA has determined that such clearance or approval is not necessary. It should not be regarded as investigational or for research. This laboratory is certified under the Clinical Laboratory Improvement Amendments of 1988 ("CLIA") as qualified to perform high-complexity clinical testing.BASIC METABOLIC [id number] 04:15:00 Test Item Value Reference Range Interpretation Comments SODIUM (BEAKER) 137 meq/L 136-145 (test code = 381) POTASSIUM (BEAKER) 4.2 meq/L 3.5-5.1 (test code = 379) CHLORIDE (BEAKER) 100 meq/L 98-107 (test code = 382) CO2 (BEAKER) (test 29 meq/L 22-29 code = 355) BLOOD UREA NITROGEN 5 mg/dL 7-21 L (BEAKER) (test code = 354) CREATININE (BEAKER) 0.72 mg/dL 0.57-1.25 (test code = 358) GLUCOSE RANDOM 93 mg/dL 70-105 (BEAKER) (test code = 652) CALCIUM (BEAKER) 9.8 mg/dL 8.4-10.2 (test code = 697) EGFR (BEAKER) (test mL/min/1.73 INSUFFIC IENT CLINICAL code = 1092) sq m DATA TO CALCULA TE ESTIMATED GFR. [id number] 03:57:00 Test Item Value Reference Range Interpretation Comments PHOSPHORUS (BEAKER) (test code = 4.8 mg/dL 2.3-4.7 H 604) [id number] 03:57:00 Test Item Value Reference Range Interpretation Comments MAGNESIUM (BEAKER) (test code = 2.0 mg/dL 1.6-2.6 627) PROTHROMBIN [id number] 03:55:00 Test Item Value Reference Range Interpretation Comments PROTIME (BEAKER) (test code = 14.4 seconds 11.7-14.7 759) INR (BEAKER) (test code = 370) 1.1 <=5.9 RECOMMENDED COUMADIN/WARFARIN INR THERAPY RANGESSTANDARD DOSE: 2.0 - 3.0 Includes: PROPHYLAXIS forvenous thrombosis, systemic embolization; TREATMENT for venous thrombosis and/or pulmonary embolus.HIGH RISK: Target INR is 2.5-3.5 for patients with mechanical heart valves.IMMUNOGLOBULIN G (IGG)2016-10-13 07:43:00 Test Item Value Reference Range Interpretation Comments IMMUNOGLOBULIN G (IGG) (BEAKER) 1099 mg/dL 540-1822 (test code = 427) IMMUNOGLOBULIN M (IGM)2016-10-13 07:43:00 Test Item Value Reference Range Interpretation Comments IMMUNOGLOBULIN M (IGM) (BEAKER) 145 mg/dL 22-293 (test code = 638) IMMUNOGLOBULIN A (IGA)2016-10-13 07:43:00 Test Item Value Reference Range Interpretation Comments IMMUNOGLOBULIN A (IGA) (BEAKER) 516 mg/dL 63-484 H (test code = 639) BASIC METABOLIC [id number] 05:59:00 Test Item Value Reference Range Interpretation Comments SODIUM (BEAKER) 136 meq/L 136-145 (test code = 381) POTASSIUM (BEAKER) 4.2 meq/L 3.5-5.1 (test code = 379) CHLORIDE (BEAKER) 101 meq/L 98-107 (test code = 382) CO2 (BEAKER) (test 25 meq/L 22-29 code = 355) BLOOD UREA NITROGEN 5 mg/dL 7-21 L (BEAKER) (test code = 354) CREATININE (BEAKER) 0.80 mg/dL 0.57-1.25 (test code = 358) GLUCOSE RANDOM 95 mg/dL 70-105 (BEAKER) (test code = 652) CALCIUM (BEAKER) 9.7 mg/dL 8.4-10.2 (test code = 697) EGFR (BEAKER) (test mL/min/1.73 INSUFFIC IENT CLINICAL code = 1092) sq m DATA TO CALCULA TE ESTIMATED GFR. [id number] 05:48:00 Test Item Value Reference Range Interpretation Comments MAGNESIUM (BEAKER) (test code = 2.1 mg/dL 1.6-2.6 627) [id number] 05:48:00 Test Item Value Reference Range Interpretation Comments PHOSPHORUS (BEAKER) (test code = 4.2 mg/dL 2.3-4.7 604) PROTHROMBIN [id number] 05:26:00 Test Item Value Reference Range Interpretation Comments PROTIME (BEAKER) (test code = 13.3 seconds 11.7-14.7 759) INR (BEAKER) (test code = 370) 1.0 <=5.9 RECOMMENDED COUMADIN/WARFARIN INR THERAPY RANGESSTANDARD DOSE: 2.0 - 3.0 Includes: PROPHYLAXIS forvenous thrombosis, systemic embolization; TREATMENT for venous thrombosis and/or pulmonary embolus.HIGH RISK: Target INR is 2.5-3.5 for patients with mechanical heart valves.PROTHROMBIN [id number] 03:27:00 Test Item Value Reference Range Interpretation Comments PROTIME (BEAKER) (test code = 13.7 seconds 11.7-14.7 759) INR (BEAKER) (test code = 370) 1.1 <=5.9 RECOMMENDED COUMADIN/WARFARIN INR THERAPY RANGESSTANDARD DOSE: 2.0 - 3.0 Includes: PROPHYLAXIS forvenous thrombosis, systemic embolization; TREATMENT for venous thrombosis and/or pulmonary embolus.HIGH RISK: Target INR is 2.5-3.5 for patients with mechanical heart valves.BASIC METABOLIC [id number] 03:17:00 Test Item Value Reference Range Interpretation Comments SODIUM (BEAKER) 138 meq/L 136-145 (test code = 381) POTASSIUM (BEAKER) 3.4 meq/L 3.5-5.1 L (test code = 379) CHLORIDE (BEAKER) 101 meq/L 98-107 (test code = 382) CO2 (BEAKER) (test 25 meq/L 22-29 code = 355) BLOOD UREA NITROGEN 4 mg/dL 7-21 L (BEAKER) (test code = 354) CREATININE (BEAKER) 0.79 mg/dL 0.57-1.25 (test code = 358) GLUCOSE RANDOM 173 mg/dL 70-105 H (BEAKER) (test code = 652) CALCIUM (BEAKER) 9.8 mg/dL 8.4-10.2 (test code = 697) EGFR (BEAKER) (test mL/min/1.73 INSUFFIC IENT CLINICAL code = 1092) sq m DATA TO CALCULA TE ESTIMATED GFR. [id number] 03:15:00 Test Item Value Reference Range Interpretation Comments PHOSPHORUS (BEAKER) (test code = 3.6 mg/dL 2.3-4.7 604) [id number] 03:15:00 Test Item Value Reference Range Interpretation Comments MAGNESIUM (BEAKER) (test code = 2.1 mg/dL 1.6-2.6 627) CBC W/PLT COUNT & AUTO [id number] 03:00:00 Test Item Value Reference Range Interpretation Comments WHITE BLOOD CELL COUNT (BEAKER) 4.3 K/ L 3.5-10.5 (test code = 775) RED BLOOD CELL COUNT (BEAKER) 3.96 M/ L 3.93-5.22 (test code = 761) HEMOGLOBIN (BEAKER) (test code = 11.2 GM/DL 11.2-15.7 410) HEMATOCRIT (BEAKER) (test code = 34.7 % 34.1-44.9 411) MEAN CORPUSCULAR VOLUME (BEAKER) 87.6 fL 79.4-94.8 (test code = 753) MEAN CORPUSCULAR HEMOGLOBIN 28.3 pg 25.6-32.2 (BEAKER) (test code = 751) MEAN CORPUSCULAR HEMOGLOBIN CONC 32.3 GM/DL 32.2-35.5 (BEAKER) (test code = 752) RED CELL DISTRIBUTION WIDTH 14.1 % 11.7-14.4 (BEAKER) (test code = 412) PLATELET COUNT (BEAKER) (test 208 K/CU MM 150-450 code = 756) MEAN PLATELET VOLUME (BEAKER) 9.9 fL 9.4-12.3 (test code = 754) NUCLEATED RED BLOOD CELLS 0 /100 WBC 0-0 (BEAKER) (test code = 413) NEUTROPHILS RELATIVE PERCENT 67 % (BEAKER) (test code = 429) LYMPHOCYTES RELATIVE PERCENT 22 % (BEAKER) (test code = 430) MONOCYTES RELATIVE PERCENT 6 % (BEAKER) (test code = 431) EOSINOPHILS RELATIVE PERCENT 4 % (BEAKER) (test code = 432) BASOPHILS RELATIVE PERCENT 1 % (BEAKER) (test code = 437) NEUTROPHILS ABSOLUTE COUNT 2.86 K/ L 1.56-6.13 (BEAKER) (test code = 670) LYMPHOCYTES ABSOLUTE COUNT 0.96 K/ L 1.18-3.74 L (BEAKER) (test code = 414) MONOCYTES ABSOLUTE COUNT (BEAKER) 0.26 K/ L 0.24-0.36 (test code = 415) EOSINOPHILS ABSOLUTE COUNT 0.17 K/ L 0.04-0.36 (BEAKER) (test code = 416) BASOPHILS ABSOLUTE COUNT (BEAKER) 0.02 K/ L 0.01-0.08 (test code = 417) IMMATURE GRANULOCYTES-RELATIVE 1 % 0-1 PERCENT (BEAKER) (test code = 280)
[2021-03-17] MEDS ORDERED: HYDRALAZINE HCL 20 MG/ML VIAL ONE (09:28)
[2021-03-17] MEDS ORDERED: NA CHLORIDE 0.9% 1,000 ML ONE (09:29)
--- NOTE | 2021-03-17 09:35 | RAD REPORT ---
EXAM DESCRIPTION: CT - Head Brain Wo Cont - 03/17/2021 9:27 am CLINICAL HISTORY: HEADACHE COMPARISON: Head Brain Wo Cont dated 10/26/2017 TECHNIQUE: All CT scans are performed using dose optimization technique as appropriate and may inclu de automated exposure control or mA/KV adjustment according to patient size. FINDINGS: No intracranial hemorrhage, hydrocephalus or extra-axial fluid collection.No areas of brai n edema or evidence of midline shift. The paranasal sinuses and mastoids are clear. The calvarium is intact. IMPRESSION: No acute intracranial abnormality.
[2021-03-17 09:48] LABS: Absolute Lymphocytes (CBC) 0.8 K/uL (0.7-4.9); Hematocrit 39.8 % (36.0-45.0); Lymphocytes % 25.2 % (15.3-44.8); MPV 7.6 fL (7.6-11.3)
[2021-03-17 09:50] LABS: Protime INR 0.97
[2021-03-17 10:17] LABS: ALT/SGPT 107 U/L (12-78); Albumin 4.2 g/dL (3.4-5.0); Alkaline Phosphatase 143 U/L (45-117); BUN Blood Urea Nitrogen 4 mg/dL (7-18); Bicarbonate 25 mmol/L (21-32); Bilirubin Direct 0.2 mg/dL (0-0.2); Bilirubin Total 0.6 mg/dL (0.2-1.0); Glucose Level 99 mg/dL (74-106); NT PRO-BNP 58 pg/mL (<125); Protein, Total 8.3 g/dL (6.4-8.2); Sodium Level 138 mmol/L (136-145)
[2021-03-17 10:18] LABS: AST/SGOT 113 U/L (15-37); Magnesium 2.2 mg/dL (1.8-2.4); Potassium 4.5 mmol/L (3.5-5.1)
[2021-03-17] MEDS ORDERED: ONDANSETRON 4 MG/2 ML VIAL ONE (10:18)
[2021-03-17] MEDS ORDERED: ASPIRIN EC 81 MG TAB PO ONE (10:18)
[2021-03-17] MEDS ORDERED: lisinopriL 20 MG TAB ONE (10:18)
--- NOTE | 2021-03-17 10:57 | ER ---
Nurse's Notes [facility] Name: Tiana Madsen Age: 55 yrs Sex: Female : 1965 Arrival Date: 03/17/2021 Time: 08:54 Bed 15 Private MD: Diagnosis: Hypertensive heart disease without heart failure;Headache Presentation: 03/17 09:01 Chief complaint: Patient states: "this morning I am having very high blood pressure and jd3 both my hands are numb.". Coronavirus screen: At this time, the client does not indicate any symptoms associated with coronavirus-19. Ebola Screen: Patient negative for fever greater than or equal to 101.5 degrees Fahrenheit, and additional compatible Ebola Virus Disease symptoms. Initial Sepsis Screen: Does the patient meet any 2 criteria? No. Patient's initial sepsis screen is negative. Does the patient have a suspected source of infection? No. Patient's initial sepsis screen is negative. Risk Assessment: Do you want to hurt yourself or someone else? Patient reports no desire to harm self or others. Onset of symptoms was March 17, 2021. 09:01 Method Of Arrival: Ambulatory jd3 09:01 Acuity: PRAMOD 2 jd3 Triage Assessment: 10:59 General: Behavior is cooperative. cb5 11:37 Headache History:. General: Appears in no apparent distress. Pain: Denies pain. Also cb5 complains of. 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 - Social history:: Smoking status: Patient denies any tobacco usage or history of. Screenin:10 Abuse screen: Denies threats or abuse. Denies injuries from another. Nutritional cb5 screening: No deficits noted. Tuberculosis screening: No symptoms or risk factors identified. Fall Risk None identified. Assessment: 09:10 General: Appears comfortable, well developed. Pain: Complains of pain in head Pain cb5 currently is 4 out of 10 on a pain scale. Pain began gradually. Neuro: No deficits noted. Cardiovascular: Reports headache Rhythm is sinus rhythm. Respiratory: No deficits noted. GI: No deficits noted. : No deficits noted. EENT: No deficits noted. Derm: No deficits noted. Musculoskeletal: No deficits noted. Vital Signs: 09:02 BP 200 / 120; Pulse 92; Resp 17 S; Temp 97.8(TE); Pulse Ox 100% on R/A; Weight 48.08 kg jd3 (R); Height 5 ft. 1 in. (154.94 cm) (R); Pain 0/10; 09:28 BP 201 / 129; Pulse 88; Resp 16; Temp 98.6; Pulse Ox 98% ; Pain 4/10; cb5 09:37 BP 189 / 105; Pulse 90; Resp 16; Pulse Ox 98% ; cb5 09:45 BP 159 / 109; Pulse 88; Resp 16; Pulse Ox 98% ; Pain 3/10; cb5 10:00 BP 161 / 101; Pulse 88; Resp 16; Temp 98.6; Pulse Ox 98% ; cb5 10:15 BP 155 / 100; Pulse 80; Resp 16; Pulse Ox 98% ; cb5 10:45 BP 153 / 86; Pulse 79; Resp 16; Pulse Ox 98% ; Pain 0/10; cb5 09:02 Body Mass Index 20.03 (48.08 kg, 154.94 cm) jd3 ED Course: 08:54 Patient arrived in ED. mr 09:01 Triage completed. jd3 09:02 Arm band placed on. jd3 09:04 Jacky Andrade PA is PHCP. cp 09:04 Kamari Francis MD is Attending Physician. cp 09:10 Patient has correct armband on for positive identification. Allergy band placed. Side cb5 rails up X 1. 09:23 Latanya Torrez, RN is Primary Nurse. cb5 09:27 CT Head Brain wo Cont In Process Unspecified. EDMS 09:40 EKG done, by ED staff, reviewed by Jakcy BOWER. gd 09:43 Basic Metabolic Panel Sent. cb5 09:44 CBC with Diff Sent. cb5 09:44 LFT's Sent. cb5 09:44 Magnesium Sent. cb5 09:44 NT PRO-BNP Sent. cb5 09:44 PT-INR Sent. cb5 09:44 Troponin HS Sent. cb5 11:25 XRAY Chest (1 view) In Process Unspecified. EDMS 11:37 No provider procedures requiring assistance completed. cb5 11:38 IV discontinued. cb5 Administered Medications: 09:33 Drug: NS 0.9% 1000 ml Route: IV; Rate: 500 ml/hr; Site: left antecubital; cb5 09:33 Drug: hydrALAZINE 10 mg Route: IVP; Site: left antecubital; cb5 10:13 Drug: Lisinopril 20 mg Route: PO; cb5 10:13 Drug: Aspirin 81 mg Route: PO; cb5 10:15 Drug: Zofran (Ondansetron) 4 mg Route: IVP; Site: left antecubital; cb5 Outcome: 10:57 Discharge ordered by MD. kristi 11:37 Discharged to home ambulatory, with family. cb5 11:37 Condition: stable 11:37 Discharge instructions given to patient, Instructed on discharge instructions, follow up and referral plans. 11:39 Patient left the ED. cb5 Signatures: Dispatcher [employer] EDWA Osmin Michelle mr Jacky Andrade, Dewayne Ureña cp, RN RN Arpit Hess Colleen, RN RN cb5 Corrections: (The following items were deleted from the chart) 09:07 09:01 Acuity: PRAMOD 3 lea tate
--- NOTE | 2021-03-17 10:58 | EDPHYS ---
Physician Documentation [facility] Name: Tiana Madsen Age: 55 yrs Sex: Female : 1965 Arrival Date: 03/17/2021 Time: 08:54 Bed 15 Private MD: ED Physician Kamari Francis HPI: 03/17 09:11 This 55 yrs old Female presents to ER via Ambulatory with complaints of High Blood cp Pressure, Headache, Nausea. 09:11 The patient has elevated blood pressure and discovered this at home. cp 09:11 Onset: The symptoms/episode began/occurred today. Associated signs and symptoms: cp Pertinent positives: headache, general weakness, tingling of hands. Severity of symptoms: in the emergency department the blood pressure is unchanged. Patient reports history of HTN and being prescribed multiple medications for blood pressure in the past. Patient reports physician was having difficulty getting blood pressure controlled, so she stop seeing a doctor. Patient reports she has not seen a physician in years. 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 - Social history:: Smoking status: Patient denies any tobacco usage or history of. ROS: 09:15 Constitutional: Negative for body aches, chills, fever, poor PO intake. cp 09:15 Eyes: Negative for injury, pain, redness, and discharge. cp 09:15 Cardiovascular: Negative for chest pain, edema, palpitations. 09:15 Respiratory: Negative for cough, shortness of breath, wheezing. 09:15 Abdomen/GI: Positive for nausea, Negative for abdominal pain, vomiting, diarrhea, constipation. 09:15 Neuro: Positive for headache, tingling. 09:15 Back: Negative for pain at rest, pain with movement. cp 09:15 All other systems are negative. Exam: 03/16 09:20 Constitutional: The patient appears in no acute distress, alert, awake, cp non-diaphoretic, non-toxic, well developed, well nourished. 09:20 Head/Face: Normocephalic, atraumatic. cp 09:20 Eyes: Periorbital structures: appear normal, Pupils: equal, round, and reactive to light and accomodation, Extraocular movements: intact throughout, Conjunctiva: normal, no exudate, no injection, Sclera: no appreciated abnormality, Lids and lashes: appear normal, bilaterally. 09:20 ENT: External ear(s): are unremarkable, Ear canal(s): are normal, clear, TM's: dullness, bilaterally, Nose: is normal, Mouth: Lips: moist, Oral mucosa: moist, Posterior pharynx: Airway: no evidence of obstruction, patent. 09:20 Neck: ROM/movement: is normal, is supple, without pain, no range of motions limitations. 09:20 Chest/axilla: Inspection: normal, Palpation: is normal, no crepitus, no tenderness. 09:20 Cardiovascular: Rate: normal, Rhythm: regular, Edema: is not appreciated, JVD: is not appreciated. 09:20 Respiratory: the patient does not display signs of respiratory distress, Respirations: normal, no use of accessory muscles, no retractions, labored breathing, is not present, Breath sounds: are clear throughout, no decreased breath sounds, no stridor, no wheezing. 09:20 Abdomen/GI: Inspection: abdomen appears normal, Palpation: abdomen is soft and non-tender, in all quadrants. 09:20 Back: pain, is absent, ROM is normal. 09:20 Neuro: Orientation: to person, place \T\ time. Mentation: is normal, Motor: moves all fours, strength is normal, Sensation: is normal. 03/17 09:24 ECG was reviewed by the Attending Physician. cp Vital Signs: 09:02 BP 200 / 120; Pulse 92; Resp 17 S; Temp 97.8(TE); Pulse Ox 100% on R/A; Weight 48.08 kg jd3 (R); Height 5 ft. 1 in. (154.94 cm) (R); Pain 0/10; 09:28 BP 201 / 129; Pulse 88; Resp 16; Temp 98.6; Pulse Ox 98% ; Pain 4/10; cb5 09:37 BP 189 / 105; Pulse 90; Resp 16; Pulse Ox 98% ; cb5 09:45 BP 159 / 109; Pulse 88; Resp 16; Pulse Ox 98% ; Pain 3/10; cb5 10:00 BP 161 / 101; Pulse 88; Resp 16; Temp 98.6; Pulse Ox 98% ; cb5 10:15 BP 155 / 100; Pulse 80; Resp 16; Pulse Ox 98% ; cb5 10:45 BP 153 / 86; Pulse 79; Resp 16; Pulse Ox 98% ; Pain 0/10; cb5 09:02 Body Mass Index 20.03 (48.08 kg, 154.94 cm) jd3 MDM: 09:06 Patient medically screened. cp 10:00 Differential diagnosis: hypertensive crisis, Malignant HTN, CVA, intracerebral cp hemorrhage. 10:53 Data reviewed: vital signs, nurses notes, lab test result(s), EKG, radiologic studies, cp CT scan, plain films. ED course: Blood pressure markedly improved with meds. Discussed elevated liver enzymes. Patient admits to daily drinking of beers and denies abdominal pain. Discussed need for f/u with primary physician for htn. Patient reports being diagnosed with htn in the past and taking multiple medications. Patient reports she stopped meds and has not seen a physician in years. 10:56 Test interpretation: by ED physician or midlevel provider: ECG, plain radiologic cp studies. 10:56 Counseling: I had a detailed discussion with the patient and/or guardian regarding: the cp historical points, exam findings, and any diagnostic results supporting the discharge/admit diagnosis, lab results, radiology results, the need for outpatient follow up, for definitive care, a family practitioner, to return to the emergency department if symptoms worsen or persist or if there are any questions or concerns that arise at home. Response to treatment: the patient's symptoms have markedly improved after treatment, and as a result, I will discharge patient. 03/17 09:13 Order name: Basic Metabolic Panel; Complete Time: 10:24 cp 03/17 10:24 Interpretation: Normal except: BUN 4. cp 03/17 09:13 Order name: CBC with Diff; Complete Time: 09:55 cp 03/17 09:55 Interpretation: Normal except: WBC 3.20. cp 03/17 09:13 Order name: LFT's; Complete Time: 10:24 cp 03/17 10:24 Interpretation: Normal except: AST 113; ALT 107; ALK 143; TP 8.3; GLOB 4.1; A/G 1.0. cp 03/17 09:13 Order name: Magnesium; Complete Time: 10:24 cp 03/17 09:13 Order name: NT PRO-BNP; Complete Time: 10:24 cp 03/17 09:13 Order name: PT-INR; Complete Time: 09:55 cp 03/17 09:13 Order name: Troponin HS; Complete Time: 10:24 cp 03/17 09:13 Order name: XRAY Chest (1 view) cp 03/17 09:13 Order name: CT Head Brain wo Cont; Complete Time: 09:55 cp 03/17 09:56 Interpretation: Report reviewed. cp 03/17 09:13 Order name: EKG; Complete Time: 09:14 cp 03/17 09:13 Order name: Cardiac monitoring; Complete Time: 09:43 cp 03/17 09:13 Order name: EKG - Nurse/Tech; Complete Time: 09:39 cp 03/17 09:13 Order name: IV Saline Lock; Complete Time: 09:43 cp 03/17 09:13 Order name: Labs collected and sent; Complete Time: 09:43 cp 03/17 09:13 Order name: O2 Per Protocol; Complete Time: 09:43 cp 03/17 09:13 Order name: O2 Sat Monitoring; Complete Time: 09:43 cp EC:24 Rate is 95 beats/min. Rhythm is regular. OH interval is shortened at 104 msec. QRS cp interval is normal. T waves are Inverted in lead aVR. Interpreted by me. Reviewed by me. Administered Medications: 09:33 Drug: NS 0.9% 1000 ml Route: IV; Rate: 500 ml/hr; Site: left antecubital; cb5 09:33 Drug: hydrALAZINE 10 mg Route: IVP; Site: left antecubital; cb5 10:13 Drug: Lisinopril 20 mg Route: PO; cb5 10:13 Drug: Aspirin 81 mg Route: PO; cb5 10:15 Drug: Zofran (Ondansetron) 4 mg Route: IVP; Site: left antecubital; cb5 Disposition: 17:27 Co-signature as Attending Physician, Kamari Francis MD I agree with the assessment and kdr plan of care. Disposition Summary: 03/17/21 10:57 Discharge Ordered Location: Home cp Problem: an ongoing problem cp Symptoms: have improved cp Condition: Stable cp Diagnosis - Hypertensive heart disease without heart failure cp - Headache cp Followup: cp - With: Private Physician - When: 2 - 3 days - Reason: Recheck today's complaints Discharge Instructions: - Discharge Summary Sheet cp - Hypertension, Adult cp - How to Take Your Blood Pressure, Osug-hk-Dsty cp - Managing Your Hypertension cp - Form - Blood Pressure Record Sheet cp Forms: - Medication Reconciliation Form cp - Thank You Letter cp - Antibiotic Education cp - Prescription Opioid Use cp Prescriptions: - Lisinopril 20 mg Oral Tablet - take 1 tablet by ORAL route once daily; 30 tablet; Refills: 0, Product cp Selection Permitted Signatures: Dispatcher [employer] EDMS Kamari Francis MD MD kdr Page, Corey, PA PA cp Davies, Jonathon RN RN jd3 Latanya Torrez RN RN cb5
--- NOTE | 2021-03-17 11:32 | RAD REPORT ---
EXAM DESCRIPTION: RAD - Chest Single View - 03/17/2021 11:25 am CLINICAL HISTORY: htn COMPARISON: Chest Single View dated 10/26/2017 FINDINGS: Lines: None. Lungs: No evidence of edema or pneumonia. Pleural: No significant pleural effusions or pneumothorax. Cardiac: The heart size is within normal limits. Bones: No acute fractures. Other: IMPRESSION: No acute cardiopulmonary disease.
[2021-03-17 12:02] VITALS: TEMP 98.6; O2SAT 98
[2021-03-17 12:09] VITALS: BP 153/86
== END 2021-03-17 11:39 | disposition home or self-care (01) ==
LOC: ER 08:52
DX: I11.9 Hypertensive heart disease without heart failure (principal); I10 Essential (primary) hypertension; Z88.5 Allergy status to narcotic agent
CPT/HCPCS: 36415; 70450; 71045; 80048; 80076; 83735; 83880; 84484; 85025; 85610; 93005; 96374; 96375; 99284; J0360; J2405; J7030

== ENCOUNTER 2023-07-08 10:31 | Emergency (ER) | payer SELFPAY ==
[2023-07-08] MEDS ORDERED: ASPIRIN 81 MG CHEWABLE TABLET ONE (10:57)
[2023-07-08] MEDS ORDERED: MORPHINE 4 MG/ML SYR ONE (11:07)
[2023-07-08] MEDS ORDERED: ONDANSETRON 4 MG/2 ML VIAL ONE (11:07)
[2023-07-08 11:24] LABS: Absolute Eosinophils 0.1 K/uL (0-0.5); Absolute Lymphocytes (CBC) 1.2 K/uL (0.7-4.9); Absolute Monocytes 0.4 K/uL (0.1-1.3); Absolute Neutrophil 4.1 K/uL (1.8-8.0); Basophils % 0.7 % (0-1.3); Eosinophils % 1.1 % (0-4.4); Hematocrit 40.4 % (36.0-45.0); Hemoglobin 13.4 g/dL (12.0-15.0); Lymphocytes % 20.7 % (15.3-44.8); MCH 32.2 pg (27.0-35.0); MCHC 33.1 g/dL (32.0-36.0); MCV 97.3 fL (80-100); MPV 7.9 fL (7.6-11.3); Monocytes % 6.4 % (3.3-12.3); Neutrophils % 71.1 % (41.7-73.7); PT Prothrombin Time 11.4 SECONDS (9.5-12.5); Platelets 242 thou/uL (152-406); Protime INR 1.04; RBC Red Blood Cell Count 4.15 M/uL (3.86-4.86); Red Cell Distribution Width 12.8 % (12.1-15.2)
[2023-07-08 11:39] LABS: Troponin High Sensitivity 3.5 pg/mL (<58.9)
--- NOTE | 2023-07-08 11:49 | RAD REPORT ---
EXAM DESCRIPTION: RAD - Chest Single View - 07/08/2023 11:44 am CLINICAL HISTORY: CHEST PAIN Chest pain. COMPARISON: Chest Single View dated 03/17/2021; Chest Single View dated 10/26/2017 FINDINGS: Portable technique limits examination quality. The lungs are grossly clear. The heart is normal in size. No displaced fractures. IMPRESSION: No acute intrathoracic process suspected.
--- NOTE | 2023-07-08 13:41 | ER ---
Nurse's Notes [facility] Name: Tiana Madsen Age: 57 yrs Sex: Female : 1965 Arrival Date: 07/08/2023 Time: 10:31 Bed 17 Private MD: Diagnosis: Chest pain on breathing;Essential (primary) hypertension Presentation: 07/07 10:36 Chief complaint: Patient states: Chest tightness and pain ratting 11/06 started one hour rs5 ago prior to arrival. 10:36 Coronavirus screen: At this time, the client does not indicate any symptoms associated rs5 with coronavirus-19. Ebola Screen: No symptoms or risks identified at this time. Initial Sepsis Screen: Does the patient meet any 2 criteria? No. Patient's initial sepsis screen is negative. Does the patient have a suspected source of infection? No. Patient's initial sepsis screen is negative. Risk Assessment: Do you want to hurt yourself or someone else? Patient reports no desire to harm self or others. Onset of symptoms was July 08, 2023. 10:36 Method Of Arrival: Ambulatory rs5 10:36 Acuity: PRAMOD 3 rs5 Triage Assessment: 10:43 General: Appears in no apparent distress. uncomfortable, Behavior is calm, cooperative. rs5 Pain: Complains of pain in chest Pain currently is 8 out of 10 on a pain scale. Quality of pain is described as aching, Is continuous. Cardiovascular: Reports chest pain, Rhythm is regular. Historical: - Allergies: 10:43 Codeine; rs5 - PMHx: 10:43 Hypertension; rs5 - PSHx: 10:43 None; rs5 - Immunization history:: Adult Immunizations up to date. - Infectious Disease History:: Denies. - Social history:: Smoking status: Patient denies any tobacco usage or history of. Screenin:37 [facility] ED Fall Risk Assessment (Adult) History of falling in the last 3 months, rs5 including since admission No falls in past 3 months (0 pts) Confusion or Disorientation No (0 pts) Intoxicated or Sedated No (0 pts). 10:37 Abuse screen: Denies threats or abuse. Nutritional screening: No deficits noted. rs5 Tuberculosis screening: No symptoms or risk factors identified. Assessment: 10:36 General: Appears in no apparent distress. uncomfortable, Behavior is cooperative. Pain: rs5 Complains of pain in chest Pain does not radiate. Pain currently is 8 out of 10 on a pain scale. Quality of pain is described as aching, Pain began 1 hour ago. Is continuous. Neuro: Level of Consciousness is awake, alert, obeys commands, Oriented to person, place, time, situation. Cardiovascular: Patient's skin is warm and dry. Rhythm is regular. Respiratory: Airway is patent Respiratory effort is even, unlabored, Respiratory pattern is regular, symmetrical. GI: Abdomen is round non-distended, Abd is soft and non tender X 4 quads. : No signs and/or symptoms were reported regarding the genitourinary system. EENT: No signs and/or symptoms were reported regarding the EENT system. Derm: Skin is intact, Skin is pink, warm \T\ dry. Musculoskeletal: Range of motion: intact in all extremities. 12:01 Reassessment: Patient and/or family updated on plan of care and expected duration. Pain rs5 level reassessed. Patient is alert, oriented x 3, equal unlabored respirations, skin warm/dry/pink. Patient denies pain at this time. Patient states feeling better. Patient states symptoms have improved. 13:05 Reassessment: No changes from previously documented assessment. rs5 13:50 Reassessment: Patient and/or family updated on plan of care and expected duration. Pain rs5 level reassessed. Patient is alert, oriented x 3, equal unlabored respirations, skin warm/dry/pink. Vital Signs: 10:36 BP 164 / 88; Pulse 81; Resp 18; Temp 97.6(O); Pulse Ox 99% on R/A; rs5 12:19 BP 117 / 62; Pulse 71; Resp 18; Pulse Ox 99% on R/A; rs5 13:40 BP 120 / 65; Pulse 70; Resp 18; Pulse Ox 99% on R/A; rs5 ED Course: 10:33 Patient arrived in ED. mg5 10:36 Pancho Fontanez, AMADOR is Primary Nurse. rs5 10:36 Arm band placed on right wrist. rs5 10:37 [facility] jh7 10:37 Murtaza Yeboah MD is Attending Physician. 7 10:43 Patient has correct armband on for positive identification. Bed in low position. Call rs5 light in reach. Side rails up X2. 10:43 Client placed on continuous cardiac and pulse oximetry monitoring. NIBP monitoring rs5 applied. shelter monitor on. Pulse ox on. NIBP on. 11:45 XRAY Chest (1 view) In Process Unspecified. EDMS 12:18 Triage completed. rs5 13:50 No provider procedures requiring assistance completed. rs5 13:50 IV discontinued, intact, bleeding controlled, No redness/swelling at site. Pressure rs5 dressing applied. Administered Medications: 11:13 Drug: morphine IVP or IV 4 mg IVP once over 4 mins Route: IVP; Infused Over: 4 mins; rs5 Site: right antecubital; 11:40 Follow up: Response: No adverse reaction rs5 11:13 Drug: Ondansetron IVP 4 mg IVP once; over 2 minutes Route: IVP; Site: right antecubital;rs5 11:40 Follow up: Response: No adverse reaction rs5 11:14 Drug: Aspirin PO Chewable Tablet 324 mg PO once; 81 mg tablets x 4 Route: PO; rs5 12:00 Follow up: Response: No adverse reaction rs5 Medication: 13:50 VIS not applicable for this client. rs5 Outcome: 13:41 Discharge ordered by MD. rangel 13:50 Discharged to home ambulatory, rs5 13:50 Condition: stable 13:50 Discharge instructions given to patient, family, Instructed on discharge instructions, follow up and referral plans. Demonstrated understanding of instructions, follow-up care, 13:53 Patient left the ED. rs5 Signatures: Dispatcher [employer] EDWV Kayley Cruz FNP FNP Pancho Valladares RN RN rs5 Honey Zhong mg5 Corrections: (The following items were deleted from the chart) 15:05 15:05 Reassessment: Patient and/or family updated on plan of care and expected rs5 duration. Pain level reassessed. Patient is alert, oriented x 3, equal unlabored respirations, skin warm/dry/pink. rs5
--- NOTE | 2023-07-08 13:41 | EDPHYS ---
Physician Documentation [facility] Name: Tiana Madsen Age: 57 yrs Sex: Female : 1965 Arrival Date: 07/08/2023 Time: 10:31 Bed 17 Private MD: ED Physician Murtaza Yeboah HPI: 07/07 10:43 This 57 yrs old Female presents to ER via Unassigned with complaints of Chest Pain, jh7 High Blood Pressure. 10:43 Onset: The symptoms/episode began/occurred this morning. Associated signs and symptoms: jh7 Pertinent positives: shortness of breath, Pertinent negatives: abdominal pain, dysuria, fever, vomiting, wheezing. 57-year-old female with a past medical history of hypertension but not taking any medication presents to the ER complaining of chest pain and headache since this morning. The patient reports a history of [place] Cel[place] and TIA 9 years ago. Describes the pain as squeezing and states that it worsens with inspiration. Vital signs stable. Denies syncope, dizziness, visual changes, weakness, or any other symptoms at this time.. Historical: - Allergies: 10:43 Codeine; rs5 - PMHx: 10:43 Hypertension; rs5 - PSHx: 10:43 None; rs5 - Immunization history:: Adult Immunizations up to date. - Infectious Disease History:: Denies. - Social history:: Smoking status: Patient denies any tobacco usage or history of. ROS: 10:43 Constitutional: Per HPI jh7 Exam: 10:43 Constitutional: This is a well developed, well nourished patient who is awake, alert, jh7 and in no acute distress. Head/Face: Normocephalic, atraumatic. Neck: Trachea midline, no thyromegaly or masses palpated, and no cervical lymphadenopathy. Supple, full range of motion without nuchal rigidity, or vertebral point tenderness. No Meningismus. Cardiovascular: Regular rate and rhythm with a normal S1 and S2. No gallops, murmurs, or rubs. Normal PMI, no JVD. No pulse deficits. Respiratory: Lungs have equal breath sounds bilaterally, clear to auscultation and percussion. No rales, rhonchi or wheezes noted. No increased work of breathing, no retractions or nasal flaring. Abdomen/GI: Soft, non-tender, with normal bowel sounds. No distension or tympany. No guarding or rebound. No evidence of tenderness throughout. Back: No spinal tenderness. No costovertebral tenderness. Full range of motion. Skin: Warm, dry with normal turgor. Normal color with no rashes, no lesions, and no evidence of cellulitis. MS/ Extremity: Pulses equal, no cyanosis. Neurovascular intact. Full, normal range of motion. Neuro: Awake and alert, GCS 15, oriented to person, place, time, and situation. Cranial nerves II-XII grossly intact. Motor strength 5/5 in all extremities. Sensory grossly intact. Cerebellar exam normal. Normal gait. Vital Signs: 10:36 BP 164 / 88; Pulse 81; Resp 18; Temp 97.6(O); Pulse Ox 99% on R/A; rs5 12:19 BP 117 / 62; Pulse 71; Resp 18; Pulse Ox 99% on R/A; rs5 13:40 BP 120 / 65; Pulse 70; Resp 18; Pulse Ox 99% on R/A; rs5 MDM: 10:37 Patient medically screened. [facility] 13:45 Differential diagnosis: AMI, NSTEMI, pneumonia, pulmonary embolism, hypertensive [facility] crisis. Data reviewed: vital signs, nurses notes, lab test result(s), EKG, radiologic studies, plain films. I considered the following discharge prescriptions or medication management in the emergency department Medications were administered in the Emergency Department. See MAR. Independent interpretation of the following test(s) in the Emergency Department EKG: See my EKG interpretation above. Care significantly affected by the following chronic conditions: Hypertension. Scoring Tools HEART Score: History: ECG: Age: Risk Factors: 1 or 2 risk factors (1), Troponin: Total Score = 2. Counseling: I had a detailed discussion with the patient and/or guardian regarding the historical points, exam findings, and any diagnostic results supporting the discharge/admit diagnosis, to return to the emergency department if symptoms worsen or persist or if there are any questions or concerns that arise at home. Response to treatment: the patient's symptoms have markedly improved after treatment. 07/07 10:54 Order name: Basic Metabolic Panel; Complete Time: 11:40 [facility] 07/07 10:54 Order name: CBC with Diff; Complete Time: 11:40 [facility] 07/07 10:54 Order name: NT PRO-BNP; Complete Time: 11:40 [facility] 07/07 10:54 Order name: PT-INR; Complete Time: 11:40 [facility] 07/07 10:54 Order name: Troponin HS; Complete Time: 11:40 [facility] 07/07 11:41 Order name: D-Dimer; Complete Time: 12:39 [facility] 07/07 12:39 Order name: Troponin High Sensitivity; Complete Time: 13:40 [facility] 07/07 10:54 Order name: XRAY Chest (1 view); Complete Time: 11:50 [facility] 07/07 10:54 Order name: EKG; Complete Time: 10:55 [facility] 07/07 10:54 Order name: Cardiac monitoring; Complete Time: 10:57 [facility] 07/07 10:54 Order name: EKG - Nurse/Tech; Complete Time: 10:57 [facility] 07/07 10:54 Order name: IV Saline Lock; Complete Time: 10:57 [facility] 07/07 10:54 Order name: Labs collected and sent; Complete Time: 10:57 [facility] 07/07 10:54 Order name: O2 Per Protocol; Complete Time: 10:57 [facility] 07/07 10:54 Order name: O2 Sat Monitoring; Complete Time: 10:57 [facility] 07/07 11:41 Order name: Recheck Blood Pressure; Complete Time: 12:20 [facility] EC:43 Rate is 79 beats/min. Rhythm is regular. QRS [place] is Normal. IA interval is normal at jh7 118 msec. QRS interval is normal at 86 msec. QT interval is normal at 382 msec. No Q waves. T waves are Normal. No ST changes noted. Clinical impression: Normal ECG. Administered Medications: 11:13 Drug: morphine IVP or IV 4 mg IVP once over 4 mins Route: IVP; Infused Over: 4 mins; rs5 Site: right antecubital; 11:40 Follow up: Response: No adverse reaction rs5 11:13 Drug: Ondansetron IVP 4 mg IVP once; over 2 minutes Route: IVP; Site: right antecubital;rs5 11:40 Follow up: Response: No adverse reaction rs5 11:14 Drug: Aspirin PO Chewable Tablet 324 mg PO once; 81 mg tablets x 4 Route: PO; rs5 12:00 Follow up: Response: No adverse reaction rs5 Disposition Summary: 07/08/23 13:41 Discharge Ordered Notes: Location: Home [facility] Problem: new [facility] Symptoms: have improved [facility] Condition: Stable [facility] Diagnosis - Chest pain on breathing [facility] - Essential (primary) hypertension [facility] Followup: [facility] - With: Private Physician - When: 2 - 3 days - Reason: Recheck today's complaints Discharge Instructions: - Discharge Summary Sheet [facility] - Nonspecific Chest Pain, Adult [facility] - Chest Wall Pain [facility] - Hypertension, Adult [facility] - Managing Your Hypertension [facility] Forms: - Medication Reconciliation Form [facility] - Patient Portal Instructions [facility] - Leadership Thank You Letter [facility] Signatures: Dispatcher [employer] Kayley Resendez, DISPOSITION CLERK DISPOSITION CLERK [facility] Pancho Fontanez RN RN rs5
[2023-07-08 14:08] VITALS: BP 117/62; TEMP 97.6; O2SAT 99
--- NOTE | 2023-07-10 13:23 | EKG ---
Test Date: 2023-07-08 Test Time: 10:43:37 Human Service Coordinator: ABDIAS MEASUREMENT RESULTS: Intervals: Rate: 79 WA: 118 QRSD: 86 QT: 382 QTc: 438 [place]: P: 42 WA: 118 QRS: 54 T: 67 INTERPRETIVE STATEMENTS: Normal sinus rhythm Normal ECG Compared to ECG 03/17/2021 09:16:48 Short WA interval no longer present Electronically Signed On 07-10-23 13:18:08 CDT by Arvind Ngo
== END 2023-07-08 13:53 | disposition home or self-care (01) ==
LOC: ER 10:31
DX: R07.1 Chest pain on breathing (principal); I10 Essential (primary) hypertension; Z88.5 Allergy status to narcotic agent
CPT/HCPCS: 36415; 71045; 80048; 83880; 84484; 85025; 85379; 85610; 93005; 96374; 96375; 99285; J2405